=== PATIENT | male | born 1995 | race Two or more races ===

== ENCOUNTER 2020-03-13 12:29 | Emergency (ER) | payer MEDICAID ==
[~2020-03-13] VITALS: Ht 170.2 cm; Wt 66.8 kg
--- NOTE | 2020-03-13 12:43 | NUR ---
KRYSTLE FROM HOME CALLED IN BY THE MOTHER. TO ER BED 13. AWAKE AND ALERT. PT DOES NOT WANT TO ANSWER WHEN TALKED TO. BROUGHT IN FOR MANIC BEHAVIOR. PT WAS REPORTED TO BE YELLING, SCREAMING AND AGGRESSIVE BEHAVIOR TOWARDS THE MOTHER. UPON PRESENTATION, PT IS CALM BUT TENSE. 1:1 SITER AT BEDSIDE. WAS AT THE BEDSIDE FOR EVAL. ORDERS RECEIVED
[2020-03-13] MEDS ORDERED: OLANZAPINE 10 MG VIAL IM ONE (12:48)
[2020-03-13] MEDS ORDERED: OLANZAPINE 5 MG TABLET PO ONE (13:00)
[2020-03-13 13:08] LABS: BASOPHILS # (AUTO) 0.2 /CMM (0.0-0.2); BASOPHILS % (AUTO) 1.2 % (0.0-2.0); HEMATOCRIT 45 % (39-51); HEMOGLOBIN 15.2 g/dL (13.5-17.5); LYMPHOCYTES # (AUTO) 0.4 /CMM (0.8-4.8); LYMPHOCYTES % (AUTO) 2.6 % (20.0-44.0); MEAN CORPUSCULAR HGB CONC 33 g/dl (31.0-36.0); MEAN CORPUSCULAR VOLUME 96 fL (80-96); MONOCYTES # (AUTO) 1.4 /CMM (0.1-1.30); MONOCYTES % (AUTO) 8.2 % (2.0-12.0); NEUTROPHILS # (AUTO) 14.6 /CMM (1.8-8.9); PLATELET COUNT (AUTO) 156 /CMM (150-450); RED BLOOD CELL COUNT(AUTO) 4.73 MIL/uL (4.5-6.0); WHITE BLOOD COUNT (AUTO) 16.7 K/uL (4.3-11.0)
[2020-03-13 13:16] LABS: CALCIUM, SERUM 9.3 mg/dL (8.5-10.1); CARBON DIOXIDE 23 mmol/L (21-32); CHLORIDE 105 mmol/L (98-107); CREATININE 0.9 mg/dL (0.6-1.3); GLUCOSE 136 mg/dL (74-106); POTASSIUM 3.3 mmol/L (3.5-5.1); SODIUM SERUM 142 mmol/L (136-145); UREA NITROGEN, BLOOD 11 mg/dL (7-18)
[2020-03-13 13:22] LABS: ALANINE AMINOTRANSFERASE 27 U/L (12-78); ALBUMIN 4.3 g/dL (3.4-5.0); ALCOHOL, BLOOD < 3 mg/dL (0-0); ALKALINE PHOSPHATASE 63 U/L (46-116); ASPARTATE AMINOTRANSFERASE 30 U/L (15-37); BILIRUBIN,DIRECT 0.3 mg/dL (0.0-0.2); BILIRUBIN,TOTAL 1.7 mg/dL (0.2-1.0); TOTAL PROTEIN, SERUM 7.7 g/dL (6.4-8.2)
[2020-03-13 13:23] LABS: ACETAMINOPHEN < 2 ug/ml (10-30)
--- NOTE | 2020-03-13 13:32 | NUR ---
SPOKE WITH PT'S MOTHER OVER THE PHONE. MOTHER REPORTED THAT HE HAD AN ANXIETY ATTACK EARLIER THAT IS WHY SHE CALLED THE TOE CLOSING MACHINE TENDER.
--- NOTE | 2020-03-13 13:41 | NUR ---
PT IS FEELING BETTER. HE IS NOW ANSWER QUESTION. PT DENIED ANY SUICIDAL NOR HOMICIDAL IDEATION.
--- NOTE | 2020-03-13 13:58 | NUR ---
Patient discharged to home in stable condition. Written and verbal after care instructions given. Patient verbalizes understanding of instruction. Pt ambulatory with a steady gait
[2020-03-13 13:59] VITALS: BP 121/73
--- NOTE | 2020-03-13 13:59 | NUR ---
PT IS RELEASED AND PICKED UP BY HER MOTHER.
== END 2020-03-13 13:59 | disposition home or self-care (01) ==
LOC: ER 12:30
DX: F30.9 Manic episode, unspecified (principal)
CPT/HCPCS: 36415; 80048; 80076; 80299; 80320; 85025; 99284; J3490; G0480

== ENCOUNTER 2020-04-05 19:12 | Emergency (ER) | payer MEDICAID ==
[~2020-04-05] VITALS: Ht 170.2 cm; Wt 66.7 kg
--- NOTE | 2020-04-05 20:00 | NUR ---
PT BIBRA FROM HOME FOR BIZARRE BEHAVIOR AND NOT BEING ABLE TO EAT X A COUPLE OF DAYS PER EMS REPORT. PT REFUSED TO ANSWER QUESTIONS, RESPIRATIONS EVEN AND UNLABORED ON RA W/ NAD NOTED. PT CONNECTED TO THE BOTANY PROFESSOR AND POX.
[2020-04-05] MEDS ORDERED: diphenhydrAMINE HCL 50 MG/ML VIAL IM ONE (20:30)
[2020-04-05] MEDS ORDERED: HALOPERIDOL LACTATE INJ 5 MG/ML VIAL IM ONE (20:30)
[2020-04-05] MEDS ORDERED: LORAZEPAM INJ 2 MG/ML VIAL IM/IV ONE (20:30)
[2020-04-05] MEDS ORDERED: HALOPERIDOL LACTATE INJ 5 MG/ML VIAL ONE (20:34)
[2020-04-05] MEDS ORDERED: diphenhydrAMINE HCL 50 MG/ML VIAL ONE (20:34)
[2020-04-05] MEDS ORDERED: LORAZEPAM INJ 2 MG/ML VIAL ONE (20:35)
[2020-04-05 20:36] LABS: BASOPHILS % (AUTO) 0.3 % (0.0-2.0); EOSINOPHILS % (AUTO) 0.1 % (0.0-6.0); HEMATOCRIT 51 % (39-51); LYMPHOCYTES % (AUTO) 9.5 % (20.0-44.0); MEAN CORPUSCULAR HGB CONC 34 g/dl (31.0-36.0); MEAN CORPUSCULAR VOLUME 96 fL (80-96); MONOCYTES # (AUTO) 1.2 /CMM (0.1-1.30); MONOCYTES % (AUTO) 11.3 % (2.0-12.0); NEUTROPHILS # (AUTO) 8.3 /CMM (1.8-8.9); NEUTROPHILS % (AUTO) 78.8 % (43.0-81.0); PLATELET COUNT (AUTO) 149 /CMM (150-450); RED BLOOD CELL COUNT(AUTO) 5.29 MIL/uL (4.5-6.0); WHITE BLOOD COUNT (AUTO) 10.5 K/uL (4.3-11.0)
[2020-04-05 21:15] LABS: CALCIUM, SERUM 10.2 mg/dL (8.5-10.1); CARBON DIOXIDE 25 mmol/L (21-32); CHLORIDE 104 mmol/L (98-107); CREATININE 1.1 mg/dL (0.6-1.3); GLUCOSE 114 mg/dL (74-106); POTASSIUM 4.5 mmol/L (3.5-5.1); SODIUM SERUM 144 mmol/L (136-145); UREA NITROGEN, BLOOD 13 mg/dL (7-18)
[2020-04-05 21:22] LABS: ACETAMINOPHEN < 2 ug/ml (10-30); ALANINE AMINOTRANSFERASE 26 U/L (12-78); ALBUMIN 4.6 g/dL (3.4-5.0); ALCOHOL, BLOOD < 3 mg/dL (0-0); ALKALINE PHOSPHATASE 73 U/L (46-116); ASPARTATE AMINOTRANSFERASE 21 U/L (15-37); BILIRUBIN,DIRECT 0.3 mg/dL (0.0-0.2); BILIRUBIN,TOTAL 1.8 mg/dL (0.2-1.0); TOTAL PROTEIN, SERUM 8.4 g/dL (6.4-8.2)
[2020-04-05] MEDS ORDERED: LIDOCAINE 2% JEL UROJET 10 ML MM ONE (22:18)
--- NOTE | 2020-04-05 22:31 | NUR ---
URINE SAMPLE COLLECTED AND SENT TO LAB.
[2020-04-05 22:57] LABS: BILIRUBIN,URINE SMALL (NEGATIVE); BLOOD, URINE Negative Ery/uL (NEGATIVE); COLOR,URINE YELLOW (YELLOW); LEUKOCYTE ESTERASE ,URINE Negative (NEGATIVE); NITRITE, URINE Negative (NEGATIVE); PH,URINE 6.5 (5.0-8.0); PROTEIN,URINE 30 mg/dl (NEGATIVE); UGLUCOSE Negative (NEGATIVE); UROBILINOGEN,URINE 0.2 EU/dL (0.2)
[2020-04-05 23:23] LABS: BACTERIA,URINE Rare /HPF (None Seen); RBC,URINE NONE SEEN /HPF (0-2); SQUAMOUS EPITHELIAL CELL,UR Few /HPF (None Seen); WBC,URINE NONE SEEN /HPF (0-3)
--- NOTE | 2020-04-06 01:16 | NUR ---
call from lab. rapid covid negative.
--- NOTE | 2020-04-06 01:47 | NUR ---
PT ALSEEP BUT AROUSABLE TO MECHANICAL STIMULI. PT CONNECTED TO THE DEAL ARCHITECT AND POX. RESPIRATIONS EVEN AND UNLABORED W/ NAD NOTED. SITTER AT BEDSIDE FOR SAFETY. WILL CONTINUE TO MONITOR
--- NOTE | 2020-04-06 02:44 | NUR ---
REASSESSED PATIENT, BUT PATIENT UNWILLING TO ANSWER QUESTIONS. PATIENT STARES AT ME AND CLOSES EYES AND COVERS HIMSELF UP WITH THE SHEETS.
[2020-04-06 06:27] VITALS: BP 131/79
--- NOTE | 2020-04-06 06:57 | NUR ---
Addendum: 04/06/20 at 0657 by SERGE MOTHERS NUMBER
--- NOTE | 2020-04-06 08:10 | NUR ---
EYES OPENED WHEN HIS NAME WAS CALLED THEN CLOSED THEM AGAIN AND REFUSED TO RESPOND,DR WRIGHT AWARE AND WANTS LCW/PSYCH CLINICIAN TRINH
--- NOTE | 2020-04-06 08:24 | NUR ---
JUANA BUCIOW CALLED FOR EVAL
--- NOTE | 2020-04-06 09:42 | NUR ---
Process Designer consult requested by ED outpatient physical therapist assistant Gener. Patient is a 24 year-old male. Patient opened eyes and closed them. it business systems analyst assisted this SW with verbal and physical cues and patient did not want to speak or open eyes again. Not responsive to this SW. LAKSHMI spoke with Dr. Reyna, per Dr. Reyna call emergency medical technician/driver to evaluate for a possible 5150 hold. Plan: LAKSHMI will call Entry Level Electrical Engineer plant production worker Yessenia Vazquez, LYNETTE for evaluation. Addendum: 04/06/20 at 0945 by HEMA MARTINS LAKSHMI left a voicemail for Entry Level Electrical Engineer plant production worker Yessenia Vazquez HORTICULTURAL WORKER for evaluation regarding this patient.
--- NOTE | 2020-04-06 11:13 | NUR ---
LAKSHMI received a call from Photo Stylist director of consumer marketing Yessenia Vazquez, TEAM LEADER SURGERY . Yessenia on her way to [facility] ED to assess the patient. LAKSHMI remains available for all needs regarding this patient.
[2020-04-06] MEDS ORDERED: OLANZAPINE 5 MG TABLET PO ONE (12:30)
[2020-04-06] MEDS ORDERED: OLANZAPINE 5 MG TABLET ONE (14:14)
--- NOTE | 2020-04-06 14:19 | NUR ---
PATIENT TALKING, OFFERED FOOD BUT STS HE'S NOT HUNGRY.
--- NOTE | 2020-04-06 14:54 | NUR ---
CALLED [facility] EMERGENCY DEPARTMENT FOR EVALUATION.
--- NOTE | 2020-04-06 15:04 | NUR ---
LAKSHMI called Stack Attendant LYNETTE Casas for re-evaluation. Per ED chute worker Gener patient was walking and talking. This SW remains available for all needs regarding this patient.
--- NOTE | 2020-04-06 15:48 | NUR ---
Gave sandwich and juice. Patient accepted.
--- NOTE | 2020-04-06 16:00 | NUR ---
AMBULATED TO WR TO WAIT FOR MOM
== END 2020-04-06 17:05 | disposition home or self-care (01) ==
LOC: ER 19:12
DX: F23 Brief psychotic disorder (principal); F22 Delusional disorders; Z20.828 Contact with and (suspected) exposure to other viral communicable diseases
CPT/HCPCS: 36415; 80048; 80076; 80299; 80307; 80320; 81001; 85025; 87426; 96372 ×2; 99284; C9803; J1200; J1630; J2060; J3490; G0480